=== PATIENT | female | born 1990 | race Caucasian/White ===

== ENCOUNTER 2017-12-31 16:26 | Emergency (ER) | payer BC, OTHER ==
--- NOTE | 2017-12-31 17:08 | EDPHY ---
H & P Stated Complaint: upper abd pain for 1 month, increased last week. Time Seen by Provider: 12/31/17 16:36 HPI/ROS: CHIEF COMPLAINT: Abdominal pain for 1 month HISTORY OF PRESENT ILLNESS: This is a previously healthy 27-year-old female who has had abdominal pain without weight loss for approximately 1 month. She does recall having an episode of diarrheal illness in the mid October a time frame which lasted 1/2 a day, associated with several trips to the bathroom for liquid stool without blood and a single episode of emesis. For some 2 days later she felt run down and after 3 days was fine. Beginning approximately 1 month ago she started having abdominal pain. This is a daily basis occurring after meals some 20-30 minutes. It would not go away. There was some associated irritations but no actual flatulence. There was no bloating. Some 2 weeks ago, he was seen by her PCP who recommended a trial of lactose free. It took her several days to by into that as she really did not want to adjust her diet. However, 1 episode was particularly bad so much so that she was a little sweaty and thus she tried a lactose-free. She was much better did that time frame. Approximately 10 to for 12 days ago she started resuming dairy products in her diet with the use of lactate. She would take the lactate at the time of the meal. There was distinct improvement. Though somewhat milder pain. Today's visit is prompted by an episode of the pain, just the bed before, and identical as well, in the setting of eating a chicken taco without any dairy associated with it whatsoever. This occurred yesterday about 1:00 p.m.. She was improved some 5-6 hours later. Today, the pain me occurred at approximately 1:00 p.m. After having a breakfast of sausage and eggs without any dairy type products at 11:30 a.m. The pain is somewhat better at this point in time but still there. She would like to pursue additional diagnostic testing at this time. She has had no weight loss. There has been no extra fell gas per the rectum nor flatulence. There has been no team due to food or water sources including kayaking and hiking relating to bed water sources. No one else is sick. No travel outside the country. P: Starts 20 min after eating food, lasting several hours Q: Achiness throughout the upper abdomen and supraumbilical area R: Does not radiate to the back or chest or shoulders S: Moderate, will keep her awake on occasion T: Onset approximately 1 month ago. Transiently better on a strict lactose- free diet. Travel: None Others: None Antibiotics: None Bad Food: None Bad Water: None Recent Surgery: None REVIEW OF SYSTEMS: Constitutional: No fever, no chills. Eyes: No discharge No diplopia ENT: No sore throat. Cardiovascular: No chest pain, no palpitations. Respiratory: No cough, shortness of breath, or wheezing. Gastrointestinal: No nausea vomiting or diarrhea. No abdominal pain. Genitourinary: No hematuria or frequency. Musculoskeletal: No back pain. Skin: No rashes. Neurological: No headache. 10 point ROS otherwise negative Source: Patient Exam Limitations: No limitations - Personal History LMP (Females 10-55): 1-7 Days Ago - Medical/Surgical History Hx Asthma: No Hx Chronic Respiratory Disease: No Hx Diabetes: No Hx Cardiac Disease: No Hx Renal Disease: No Hx Cirrhosis: No Hx Alcoholism: No Hx HIV/AIDS: No Hx Splenectomy or Spleen Trauma: No Other PMH: Laparoscopic egg donation several years ago - Family History Significant Family History: No pertinent family hx - Social History Smoking Status: Never smoked Alcohol Use: None Drug Use: None - Physical Exam Exam: General Appearance: Alert, no distress. Afebrile. Normal phonation. No respiratory distress. Nontoxic, no diaphoresis Eyes: Pupils equal and round no pallor or injection. No icterus ENT, Mouth: Mucous membranes moist Pharynx without erythema or exudate. TM Clear. Neck: No adenopathy. Supple. No JVD. Trachea in midline. Respiratory: There are no retractions, lungs are clear to auscultation. Chest wall: Nontender to palpation. No crepitus. Cardiovascular: Regular rate and rhythm, no murmur. Abdomen: Soft diffuse tenderness all 4 quadrants however greatest in the left upper quadrant. No masses, bowel sounds normal. Femoral pulses equal. No CVA tenderness Neurological: Ox3. No motor weakness. Sensation intact. Gait nl. Skin: Warm and dry, no rashes. Musculoskeletal: No joint swelling. Extremities: No edema. Homans sign negative. No cords. Psychiatric: Normal affect. There is no agitation Constitutional: Initial Vital Signs Temperature (C) 36.7 C 06/03/18 16:31 Heart Rate 65 12/31/17 16:31 Respiratory Rate 18 12/31/17 16:31 Blood Pressure 126/70 H 12/31/17 16:31 O2 Sat (%) 98 12/31/17 16:31 O2 Delivery Mode Room Air Allergies/Adverse Reactions: No Known Allergies Allergy (Unverified 12/31/17 16:30) Home Medications: Medication Instructions Recorded Sprintec 28 Day Tablet 12/31/17 Medical Decision Making - Diagnostics Imaging Results: Imaging Impressions Abdomen X-Ray 12/31/17 17:19 Impression: 1. Mild constipation. 2. No bowel obstruction. ED Course/Re-evaluation: Patient was observed for period of time. There is really no improvement of her pain. Ultimately she received some Tylenol. We talked about difficulties with generic pain medicine such as Vicodin or Percocet as might aggravating her pain. She certainly did not request any. This presents a perplexing problem, however is due for an outpatient workup. She has had a protracted difficulties for the course of the last 4 weeks. She is having minimal bloating and no flatulence thus the idea of lactose intolerance somewhat less inclined. Furthermore as she is that would be another reason to make this less likely. There is only moderate stool seen on the x-ray, she has had some decent response to [id number] lactaid, and has not tried a PPI. Thus there is a possibility that several different things still exist such as acid peptic disease, lactose intolerance (which is less likely as noted above), as well as functional bowel disorder and constipation. She did take a tablet of the medications given to her by her PCP yesterday and today with not a whole lot of relief. She has yet to try any Tylenol. She has not been taking ibuprofen She has already been keeping it dietary log which we I have encouraged. As to her choice of Lactaid I would prefer her to try Lactease, as evidently it seems to have a more efficacy based upon a studies, which I shared with her. She will follow up as she has been planning to do so with her family doctor in the next week or so. It is encouraging that she has not lost weight on this problem. Giardiasis certainly would be a unifying diagnosis as it might well lead to lactose intolerance however she has had no particular vector of exposure and has had really no flatulence to speak of that would be usually seen in giardiasis. She will submit a stool specimen, if able, later in the week. Differential Diagnosis: Differential diagnosis includes, but is not limited to: Gastroenteritis, renal colic, kidney stones, ureterolithiasis, cholecystitis, appendicitis, gastritis, mesenteric adenitis, food poisoning, bacterial dysentery, giardiasis, celiac sprue, lactose deficiency. - Data Points Laboratory Results: Laboratory Results 12/31/17 17:30 12/31/17 17:30 WBC 12.88 10^3/uL H 10^3/uL (3.80-9.50) RBC 4.71 10^6/uL 10^6/uL (4.18-5.33) Hgb 14.3 g/dL g/dL (12.6-16.3) Hct 42.3 % % (38.0-47.0) MCV 89.8 fL fL (81.5-99.8) MCH 30.4 pg pg (27.9-34.1) MCHC 33.8 g/dL g/dL (32.4-36.7) RDW 12.9 % % (11.5-15.2) Plt Count 367 10^3/uL 10^3/uL (150-400) MPV 10.2 fL fL (8.7-11.7) Neut % (Auto) 51.2 % % (39.3-74.2) Lymph % (Auto) 27.9 % % (15.0-45.0) [place] % (Auto) 5.1 % % (4.5-13.0) Eos % (Auto) 14.4 % H % (0.6-7.6) Baso % (Auto) 1.2 % % (0.3-1.7) Nucleat RBC Rel Count 0.0 % % (0.0-0.2) Absolute Neuts (auto) 6.60 10^3/uL H 10^3/uL (1.70-6.50) Absolute Lymphs (auto) 3.59 10^3/uL H 10^3/uL (1.00-3.00) Absolute Monos (auto) 0.66 10^3/uL 10^3/uL (0.30-0.80) Absolute Eos (auto) 1.85 10^3/uL H 10^3/uL (0.03-0.40) Absolute Basos (auto) 0.15 10^3/uL H 10^3/uL (0.02-0.10) Absolute Nucleated RBC 0.00 10^3/uL 10^3/uL (0-0.01) Immature Gran % 0.2 % % (0.0-1.1) Immature Gran # 0.03 10^3/uL 10^3/uL (0.00-0.10) Smear Review By Pending Medications Given: Discontinued Medications Acetaminophen (Tylenol) 1,000 mg PO EDNOW ONE Stop: 12/31/17 19:07 Last Admin: 12/31/17 19:16 Dose: 1,000 mg Point of Care Test Results: Urine Dip Collection Date 12/31/17 Collection Time 17:36 Specific [place] (1.002-1.030) 1.020 PH (5.0-7.5) 8.5 Leukocytes (Negative) Trace Nitrites (Negative) Negative Protein (Negative) Negative Glucose (Negative) Negative Ketones (Negative) Negative Urobilnogen (0.2-1.0 EU) 4.0 Bilirubin (Negative) Negative Blood (Negative) Negative Departure - Departure Disposition: Home, Routine, Self-Care Clinical Impression: Abdominal pain Qualifiers: Abdominal location: upper abdomen, unspecified Qualified Code(s): R10.10 - Upper abdominal pain, unspecified Condition: Good Instructions: Lactose-Controlled Diet (ED), Acute Abdominal Pain (ED), Gas and Bloating (ED) Additional Instructions: First, strict dairy free for 7 days. Them lactrase is probably your best bet. Dairyease is another alternative. Lactaid is a distant third. For the pain: Tylenol Therapeutic Trials (no need to combine) - Dairy Free - Prilosec OTC 20 mg, 2 tabs daily for 10 days - Miralax daily for 4 weeks. If you want to try to get Ca++ in your diet: try for Ca++ supplemnet of > 500 mg per day or Yogurt with live cultures, though without milk added after the fermentation. Consider submitting a stool specimen later in the week, in particular if the Lactose Free diet does not work. Follow up the regular doctor in 5-10 days. Submit stools when able to do so; Take to [facility] for processing. Referrals: Charleen Stacy MD [Primary Care Provider] - As per Instructions
[2017-12-31 18:38] LABS: PLATELET COUNT 367 10^3/uL (150-400)
[2017-12-31] MEDS ORDERED: ACETAMINOPHEN 500 MG TAB ONE (19:06)
[2017-12-31] MEDS ORDERED: ACETAMINOPHEN 500 MG TAB PO ONE (19:06)
[2017-12-31 19:19] VITALS: BP 114/64
== END 2017-12-31 19:15 | disposition home or self-care (01) ==
LOC: CED 16:26
DX: R10.10 Upper abdominal pain, unspecified (principal)
CPT/HCPCS: 74018-PO

== ENCOUNTER 2018-01-02 15:53 | Emergency (ER) | payer BC ==
--- NOTE | 2018-01-02 16:13 | EDPHY ---
HPI/HX/ROS/PE/MDM Narrative: CHIEF COMPLAINT: Upper abdominal pain HPI: The patient is a 27 y/o female complaining of upper abdominal pain onset around 1 month ago. Just prior to her onset of symptoms, she thought she had a stomach illness as she vomited and had diarrhea. However, within several days these symptoms improved; although she has had looser stools than normal since then. When her abdominal pain began she saw her PCP, Dr. Stacy, who thought that the patient might have a lactose intolerance. Her PCP advised that the patient stop consuming dairy and take Lactaid, Tums, and Bentyl. However, these medications have not improved her symptoms and she did not stop eating dairy. On Monday, 2 days ago, the pain exacerbated so she decided to present to the emergency department. During this visit she had normal labs and abdominal x- rays. The physician at this time advised that she follow up with a manager people, stop eating dairy, take Prilosec and Miralax. For the past 2 days the patient has not consumed dairy, but the pain has worsened. Due to this pain she has been unable to work. Today she called her PCP, who advised that she present to the ED again. The pain is currently in her mid-upper abdomen. Applying ice mildly alleviates the pain; she last took Tylenol today with minimal relief. Denies tests to look at her gallbladder or familial history of gallbladder problems. Denies vomiting, urinary or bowel complaints, fever, headache, numbness, paresthesias, chest pain, shortness of breath. REVIEW OF SYSTEMS: Aside from elements discussed in the HPI, a comprehensive 10-point review of systems was reviewed and is negative. 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 ENT: Eyes are normal to inspection. ENT inspection normal. Neck: Normal inspection. Full range of motion. Respiratory: No respiratory distress. Breath sounds normal bilaterally. Cardiovascular: Regular rate and rhythm. Strong peripheral pulses. Normal cap refill. Abdomen: Severe epigastric tenderness to palpation. There are no peritoneal signs. There are normal bowel sounds. Back: Normal to inspection. No tenderness to palpation. Skin: Normal color. No rash. Warm and dry. Extremities: Normal appearance. Full range of motion. Neuro: Oriented x3. Normal motor function. Normal sensory function. ED Course: 174: I spoke with Dr. Roach, radiologist, who reports that the patient's gallbladder US is negative. 1800: Reassessed patient and discussed imaging and laboratory findings. She is feeling okay after 30mg IV Toradol. She would like an abdominopelvic CT, which I feel is appropriate. 1924: Spoke with Dr. Roach, radiologist, who reports that patient's abdominopelvic CT is negative. 1926: Reassessed patient and discussed imaging findings. 40mg PO Protonix given prior to discharge. I have advised her to follow up with Dr. Trammell, manager people, in the next week. I have also advised her to take Prilosec OTC for the next 10 days. Return precautions provided; patient is comfortable with this plan. MDM: This is a young healthy female that presents with severe pain after eating, progressively getting worse. We performed an extensive evaluation including labs, US and CT, all of which are negative. Given workup, I suspect this likely represents gastritis or possible ulcer - patient will be started on PPI and given urgent GI referral. I see no evidence of appendicitis, cholecystitis , pancreatitis, PNA or UTI. - Data Points Imaging Results: Imaging Impressions Abdomen Ultrasound 01/02/18 16:35 Impression: Normal right upper quadrant ultrasound. Findings discussed with Stu Rogel MD 01/02/2018 at 17:45. Imaging: Discussed imaging studies w/ marquetry worker Radiologist, I viewed and interpreted images myself Laboratory Results: Laboratory Results 01/02/18 16:10 01/02/18 16:10 01/02/18 01/02/18 01/02/18 16:10 16:10 16:10 WBC 10.41 10^3/uL H 10^3/uL (3.80-9.50) RBC 4.51 10^6/uL 10^6/uL (4.18-5.33) Hgb 13.9 g/dL g/dL (12.6-16.3) Hct 40.5 % % (38.0-47.0) MCV 89.8 fL fL (81.5-99.8) MCH 30.8 pg pg (27.9-34.1) MCHC 34.3 g/dL g/dL (32.4-36.7) RDW 12.8 % % (11.5-15.2) Plt Count 316 10^3/uL 10^3/uL (150-400) MPV 10.0 fL fL (8.7-11.7) Neut % (Auto) 64.9 % % (39.3-74.2) Lymph % (Auto) 26.6 % % (15.0-45.0) [place] % (Auto) 6.4 % % (4.5-13.0) Eos % (Auto) 0.8 % % (0.6-7.6) Baso % (Auto) 1.0 % % (0.3-1.7) Nucleat RBC Rel Count 0.0 % % (0.0-0.2) Absolute Neuts (auto) 6.76 10^3/uL H 10^3/uL (1.70-6.50) Absolute Lymphs (auto) 2.77 10^3/uL 10^3/uL (1.00-3.00) Absolute Monos (auto) 0.67 10^3/uL 10^3/uL (0.30-0.80) Absolute Eos (auto) 0.08 10^3/uL 10^3/uL (0.03-0.40) Absolute Basos (auto) 0.10 10^3/uL 10^3/uL (0.02-0.10) Absolute Nucleated RBC 0.00 10^3/uL 10^3/uL (0-0.01) Immature Gran % 0.3 % % (0.0-1.1) Immature Gran # 0.03 10^3/uL 10^3/uL (0.00-0.10) Sodium 140 mEq/L mEq/L (135-145) Potassium 4.5 mEq/L mEq/L (3.3-5.0) Chloride 106 mEq/L mEq/L (97-110) Carbon Dioxide 23 mEq/l mEq/l (22-31) Anion Gap 11 mEq/L mEq/L (8-16) BUN 14 mg/dL mg/dL (7-23) Creatinine 0.8 mg/dL mg/dL (0.6-1.0) Estimated GFR > 60 Glucose 96 mg/dL mg/dL (70-100) Calcium 8.7 mg/dL mg/dL (8.5-10.4) Total Bilirubin 0.5 mg/dL mg/dL (0.1-1.4) Conjugated Bilirubin 0.4 mg/dL mg/dL (0.0-0.5) Unconjugated Bilirubin 0.1 mg/dL mg/dL (0.0-1.1) AST 20 IU/L IU/L (14-46) ALT 24 IU/L IU/L (9-52) Alkaline Phosphatase 57 IU/L IU/L (38-126) Total Protein 6.5 g/dL g/dL (6.3-8.2) Albumin 3.7 g/dL g/dL (3.5-5.0) Lipase 57 IU/L IU/L (23-300) Beta HCG, Qual NEGATIVE Medications Given: Discontinued Medications Ketorolac Tromethamine (Toradol) 30 mg IVP EDNOW ONE Stop: 01/02/18 16:51 Last Admin: 01/02/18 16:57 Dose: 30 mg General Time Seen by Provider: 01/02/18 16:02 Initial Vital Signs: Initial Vital Signs Temperature (C) 36.6 C 01/02/18 15:56 Heart Rate 71 01/02/18 15:56 Respiratory Rate 17 01/02/18 15:56 Blood Pressure 126/49 H 01/02/18 15:56 O2 Sat (%) 98 01/02/18 15:56 O2 Delivery Mode Room Air Allergies/Adverse Reactions: No Known Allergies Allergy (Verified 01/02/18 15:56) Home Medications: Medication Instructions Recorded Sprintec 28 Day Tablet 12/31/17 Departure - Departure Disposition: Home, Routine, Self-Care Clinical Impression: Abdominal pain Condition: Good Instructions: Acute Abdominal Pain (ED), Abdominal Pain (ED) Additional Instructions: Take Prilosec OTC for the next 10 days as directed. Follow up with a manager people in the next week, you have been referred to Dr. Trammell. Follow-up with your primary doctor within 72 hours. Return to the Emergency Department for fever, chest pain, shortness of breath, increasing pain or other worsening of condition. Referrals: Charleen Stacy MD [Primary Care Provider] - As per Instructions Pablo Trammell MD [Medical Doctor] - As per Instructions Report Scribed for: Stu Rogel Report Scribed by: Leanne Huggins Date of Report: 01/02/18 Time of Report: 16:27 Physician Review and Approval Statement: Portions of this note were transcribed by an ED scribe. I personally performed the history, physical exam, and medical decision making; and confirm the accuracy of the information in the transcribed note.
[2018-01-02 16:21] LABS: PLATELET COUNT 316 10^3/uL (150-400)
[2018-01-02] MEDS ORDERED: KETOROLAC 30 MG/1 ML SDV IVP ONE (16:50)
[2018-01-02] MEDS ORDERED: IOPAMIDOL (ISOVUE-300) 100 ML BTL ONE (18:11)
[2018-01-02] MEDS ORDERED: PANTOPRAZOLE SODIUM 40 MG TAB PO ONE (19:29)
[2018-01-02 19:53] VITALS: BP 108/53
== END 2018-01-02 19:53 | disposition home or self-care (01) ==
DX: R10.13 Epigastric pain (principal)
CPT/HCPCS: 96374; J1885; Q9967